=== PATIENT | male | born 1975 | race Caucasian/White ===

== ENCOUNTER 2025-07-27 14:35 | Emergency (ER) | payer OTHER, SELFPAY ==
[2025-07-27 14:44] VITALS: BP 126/77; PULSE 69; RESP 16; TEMP 36.1; O2SAT 95; BMI 24.4
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
--- OUTSIDE RECORDS SUMMARY | 2025-07-27 15:42 | XMS_ITS | Clinical Summary ---
Author Organization [facility] Address [address] [place] [address] Care Team Providers Care Smasher Name Role Phone Yoni Bernard MD Primary Care Provider Allergies No known active allergies Medications No known medications Active Problems Problem Noted Date Diagnosed Date Routine health maintenance 01/05/2024 Overview (01/05/2024): Colonoscopy, 01/20, recheck 10 years Encounters Date Type Department Care Team Description 07/27/2025 Nurse Triage [facility] [address] [place] [address] Yoni Bernard MD Head Injury 06/09/2025 9:45 AM CDT Office Visit [facility] [address] [facility] [address] [place] [address] Abbie Johnson, 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 Denies any other symptoms.) 06/09/2025 Travel from Last 3 Months Immunizations Immunization Administration Dates Next Due Influenza, IIV4 09/20/2019 Td, Preservative Free (age >= 7 Years) 8 Tdap 09/20/2019,01/04/2009 Family History Medical History Relation Name Comments Good Health Brother 2 Other Father multiple sclero sis Good Health Mother Relation Name Status Comments Brother 1 Alive Brother 2 Father Mother Alive Social History Tobacco Use Types Packs/Day Years Used Date Smoking Tobacco: Never Passive Smoke Exposure: Past Smokeless Tobacco: Former Quit: 09/29/2020 Tobacco Cessation:Counseling Given: Not Answered Comments:Chew up until mid March 2014 Alcohol Use Standard Drinks/Week Comments Yes 6 (1 standard drink = 0.6 oz pur e alcohol) PHQ-2 Answer Date Recorded PHQ-2 TOTAL SCORE 0 01/21/2025 Social Connections Answer Date Recorded Do you often feel lonely or isolated from those around you? 0 01/21/2025 Financial Resource Strain Answer Date R ecorded Difficulty of Paying Living Expenses 3 01/21/2025 Difficulty of Paying Living Expenses Not on file 01/21/2025 Food Insecurity Answer Date Recorded Do you worry your food will run out before you are able to buy more? 1 01/21/2025 Transportation Needs Answer Date Record ed Does lack of transportation keep you from medica l appointments? 1 01/21/2025 Does lack of transportation keep you from work, meetings or getting things that you need? 1 01/21/2025 Housing Stability Answer Date Recorded What is your housing situation today? 1 01/21/2025 Utilities Answer Date Recorded Do you have trouble paying f or utilities (for example, heat, electricity, water, phone)? 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 Not on file Not on f ile Not on file Obstetrics History Last Filed Vital Signs Vital Sign Reading Time Taken Comments Blood Pressure 126/60 06/09/2025 9:48 AM CDT Pulse 66 06/09/2025 9:48 AM CDT Temperature 36.1 C (96.9 F) 06/09/2025 9:48 AM CDT Respiratory Rate 16 06/09/2025 9:48 AM CDT Oxygen Saturation 97% 06/09/2025 9:48 AM CDT Inhaled Oxygen Concentration - - Weight 80.6 kg (177 lb 12.8 oz) 01/21/2025 8:07 AM CDT Height 176.5 cm (5' 9.5) 01/21/2025 8:07 AM CDT Body Mass Index 25.88 01/21/2025 8:07 AM CDT Plan of Treatment Health Maintenance Due Date Last Done Comments Hepatitis C screening for ag e 18-79 1993 Hepatitis B series for 19+ ( 1 of 3 - 19+ 3-dose series) 1994 Influenza Vaccine (#1) 2025 09/20/2019 Pneumococcal series for age 50+ (1 of 1 - PCV) 2025 Zoster (shingles) series for age 50+ (1 of 2) 2025 BMI (ht and wt on same day) for age 18+ 01/21/2026 01/21/2025, 11/21/2023, 11/07/2022, Additional history exists Depression screening for age 12+ 01/21/2026 01/21/2025, 11/21/2023, 03/06/2021, Additional history exists Tetanus booster 09/20/2029 09/20/2019, 04/2009, 02/24/2008 Lipids for age 45-75 01/21/2030 01/21/2025, 11/21/2023, 11/07/2022, Additional history exists Colonoscopy through age 75 12/25/2033 12/26/2023 RSV vaccine for adults or (1 - 1-dose 75+ series) 2050 HIV for age 15-65 Completed 11/21/2023 Procedures Procedure Name Priority Date/Time Associated Diagnosis Comments STREP A PCR Routine 06/09/2025 9:53 AM CDT Sore throat THROAT RAPID STREP ONLY CLINIC Routine 06/09/2025 9:53 AM CDT Sore throat LIPID PANEL Routine 01/21/2025 8:47 AM CDT Routine health maintenance SCAN-COLONOSCOPY 12/26/2023 8:30 AM CDT ANTI HIV 1/2 Routine 11/21/2023 10:53 AM RETORT FIREMAN Routine screening for STI (sexually transmitted infection) from Last 3 Months or Most Recently Relevant to Health Maintenance Results * STREP A PCR [[id number]] (06/09/2025 9:53 AM CDT) Pathologist [facility] GROUP A STREP Negative 06/09/2025 11:32 PM CDT [facility] Throat SPECIMEN FROM THROAT / Unknown Non-Blood / Unknown 06/09/2025 9:53 AM CDT 06/09/2025 10:52 AM CDT us Abbie Johnson NP MICROBIOLOGY Final Result [facility] [address] [place] [address], [place] * RAPID STREP [[id number]] (06/09/2025 9:53 AM CDT) [facility] POC, GROUP A STREP NOT DETECTED NOT DETECTED 06/09/2025 10:04 AM CDT [facility] Comment: The [place] [employer] recommends that a throat culture be performed if a rapid group A streptococcus assay yields a negative result. [employer] recommends Streptococcus, Group A culture. Throat SPECIMEN FROM THROAT / Unknown Non-Blood / Unknown 06/09/2025 9:53 AM CDT 06/09/2025 9:54 AM CDT us Abbie Johnson NP MICROBIOLOGY Final Result Performing Organization Address City/[facility] Co de Phone Number [facility] [address] [address], [place] [phone] [facility] [address] [place] [address], [place] * (ABNORMAL) LIPID PANEL (01/21/2025 8:47 AM CDT) Pathologist [facility] CHOLESTEROL, TOTAL 225(H) <200 mg/dL [facility] HDL CHOLESTEROL 60 > OR = 40 mg/dL [facility] TRIGLYCERIDES 122 <150 mg/dL [facility] LDL-CHOLESTEROL 141(H) mg/dL (calc) [facility] Comment: Reference range: <100 Desirable range <100 mg/dL for primary prevention; <70 mg/dL for patients with CHD or diabetic patients with > or = 2 CHD risk factors. LDL-C is now calculated using the Jaya-Eaton calculation, which is a validated novel method providing better accuracy than the Friedewald equation in the estimation of LDL-C. Jaya SS et al. JORGE. 2013;310(19): 9730-1765 (http://education.[facility]/faq/ELM010) CHOL/HDLC RATIO 3.8 <5.0 (calc) [facility] NON HDL CHOLESTEROL 165(H) <130 mg/dL (calc) [facility] Comment: For patients with diabetes plus 1 major ASCVD risk factor, treating to a non-HDL-C goal of <100 mg/dL (LDL-C of <70 mg/dL) is considered a therapeutic option. Blood BLOOD SPECIMEN / Unknown 01/21/2025 8:47 AM CDT 01/21/2025 8:47 AM CDT Narrative [facility] - 01/22/2025 3:44 AM CDT FASTING:YES FASTING: YES us Yoni Bernard MD CHEMISTRY Final Result [facility] [address] [place] [address], [employer] [facility] [address] * SCAN-COLONOSCOPY (12/26/2023 8:30 AM CDT) Narrative Procedure Note EnzoVivek Rios MD - 12/26/2023 7:52 AM CDT [facility] [address] [place] [address], [address], [place] [id number] Patient Name: Zeyad Garibay Gender: Male Exam Date: 12/26/2023 Visit Number: [id number] Age: 48 Years Date of : 1975 Attending MD: Vivek Perry MD Medical Record#: [id number] Procedure: Colonoscopy Indications: Colorectal cancer screening Referring MD: Yoni Bernard MD Primary MD: Yoni Bernard MD Medications: Intra Procedure Medications: Patient received monitored anesthesia care. Complications: No immediate complications Procedure: An examination of the heart and lungs was performed and found to be withinacceptable limits. . The patient was therefore deemed a reasonablecandidate for endoscopy and sedation. The risks and benefits of the procedure were explained to the patient.After obtaining informed consent, the patient received monitoredanesthesia care and I passed the scope without difficulty via the rectum to the cecum. The appendiceal orificeand ic valve were identified. The scope was retroflexed during theexamination The quality of the prep was excellent (Miralax/Gatorade/2tablets Bisacodyl/Magnesium Citrate). This was a complete examination throughout the entire colon. Findings: Polyp location: descending colon. Quantity: 1. Size: 3 mm. Polyp shape:sessile. Maneuver: polypectomy was performed with a cold snare. Removal: complete. Retrieval: complete. Bleeding: none. Polyp location: rectum. Quantity: 1. Size: 4 mm. Polyp shape: sessile. Maneuver: polypectomy was performed with a cold snare. Removal: complete. Retrieval: complete. Bleeding: none. Hemorrhoids. Internal hemorrhoids without bleeding. Impression: Colorectal polyps Hemorrhoids, internal Preliminary Plan: The patient and their physician will receive a copy of the pathologyreport as well as pathology-based recommendations for future screening orsurveillance. Pathology Results: A: COLON, DESCENDING, POLYP: 1. Hyperplastic polyp B: RECTUM, POLYP: 1. Hyperplastic polyp MICROSCOPIC A: Performed B: Performed SPECIAL STAINING/DEEPER A: Deeper Electronically signed by: Александр Whaley MD Interpreted at [facility], [address] [place] [address] Orders Instruction(s)/Education: Instruction/Education Timeframe Assessment Colon Cancer Prevention K63.5 Colon Polyps K63.5 Final Plan: Repeat colonoscopy in 10 years for screening. If you have signs orsymptoms of lower GI illness or a new diagnosis of colon cancer in animmediate family member, you should contact [facility] or your primary providerto discuss whether your next exam should be repeated sooner. We will attempt to contact you at appropriate intervals via U.S. mail. Wemay not be able to find you or contact you at that time, therefore youshould know that the responsibility for following our recommendation restswith you. If you don't hear from us at the time your procedure is due,please contact our office to schedule an appointment. If your contactinformation should change, please contact our office so that we can updateyour record. _Electronically signed by: Vivek Perry MD 12/26/2023 cc: Yoni Bernard MD cc: Yoni Bernard MD us Vivek Giraldo MD OTHER Final Resu lt * ANTI HIV 1/2 (11/21/2023 10:53 AM RETORT FIREMAN) HIV-1/HIV-2 SCREEN Non-Reacti ve Non-Reacti ve 11/21/2023 8:58 PM RETORT FIREMAN [facility] Comment:HIV-1 p24 and HIV-1/ HIV-2 Ab Not Detected. Blood BLOOD SPECIMEN / Unknown Venipuncture / Unknown 11/21/2023 10:53 AM RETORT FIREMAN 11/21/2023 10:53 AM RETORT FIREMAN us Yoni Bernard MD SEND OUTS Final Result [facility] [address] [place] [id number], from Last 3 Months or Most Recently Relevant to Health Maintenance Insurance [facility] [employer] Care Teams Smasher Relationship Specialty [place] [address] [place] [address] PCP - General Family Practice 11/07/22
== END 2025-07-27 15:59 | disposition home or self-care (01) ==
LOC: ED 15:39
PROVIDERS: Emergency Provider Emergency Medicine
DX: S06.0X1A Concussion with loss of consciousness of 30 minutes or less, initial encounter (principal); W05.2XXA Fall from non-moving motorized mobility scooter, initial encounter; Y93.89 Activity, other specified
CPT/HCPCS: 70450; 99284